=== PATIENT | female | born 1985 | race Two or more races ===

== ENCOUNTER 2022-04-06 04:18 | Day surgery (SDC) | payer OTHER ==
[2022-04-03 16:02] VITALS: BMI 31.3
[2022-04-06 06:52] VITALS: RESP 18
[2022-04-06] MEDS ORDERED: ceFAZolin SODIUM 1 GM VIAL ONE (07:18)
[2022-04-06] MEDS ORDERED: SUCCINYLCHOLINE CHLORIDE 200 MG/10 ML SYRINGE ONE (07:38)
[2022-04-06] MEDS ORDERED: PROPOFOL 40 ML ONE (07:38)
[2022-04-06] MEDS ORDERED: ePHEDrine SULFATE 50 MG/1 ML AMPULE ONE (07:48)
[2022-04-06] MEDS ORDERED: LACTATED RINGERS SOLUTION 1,000 ML IV SCH (08:45)
[2022-04-06] MEDS ORDERED: INDOMETHACIN 50 MG CAPSULE PO ONE (09:10)
[2022-04-06 16:19] VITALS: BP 116/65; PULSE 70; TEMP 97.9
== END 2022-04-06 15:40 | disposition home or self-care (01) ==
LOC: JASU-SURG 04:18
PROVIDERS: ATTEND Obstetrics & Gynecology Maternal & Fetal Medicine
PROC: 0UVC7ZZ Restriction of Cervix, Via Natural or Artificial Opening (ICD-10-PCS; principal; 2022-04-06 07:30)
DX: O34.31 Maternal care for cervical incompetence, first trimester (principal); Z3A.12 12 weeks gestation of pregnancy
CPT/HCPCS: 94760

== ENCOUNTER 2022-10-12 19:20 | Inpatient (IN) | payer OTHER ==
[2022-10-12] MEDS: DEXTROSE 5%-LACTATED RINGERS 1,000 ML IV SCH (21:05)
[2022-10-12] MEDS ORDERED: SODIUM CHLORIDE 500 ML IV STA (21:34)
[2022-10-12] MEDS ORDERED: MISOPROSTOL 100 MCG TABLET PV SCH (21:45)
[2022-10-12 21:52] LABS: BASO % 0.2 % (0-2.0); HEMATOCRIT 25.6 % (32.4-45.2); LYMPH % 28.5 % (8-40); MCH 22.5 pg (25.7-33.7); MCHC 31.4 g/dl (32.0-36.0); MEAN CELL VOLUME 71.6 fl (80-96); MEAN PLT VOLUME 7.7 fl (7.5-11.1); MONO % 6.4 % (3.8-10.2); NEUT % 63.9 % (42.8-82.8); PLATELET COUNT 402 10^3/uL (134-434); RBC 3.57 M/mm3 (3.60-5.2); RDW 16.8 % (11.6-15.6)
[2022-10-12 21:59] LABS: PROTHROMBIN TIME (PATIENT) 11.6 SEC (9.7-13.0)
[2022-10-12 22:02] LABS: ACTIVATED PTT 26.5 SECONDS (25.2-36.5)
[2022-10-12 22:03] LABS: POTASSIUM 4.2 mmol/L (3.5-5.1)
[2022-10-12 22:04] LABS: CALCIUM 8.3 mg/dL (8.5-10.1)
[2022-10-12 22:05] LABS: BLOOD UREA NITROGEN 12.4 mg/dL (7-18)
[2022-10-12 22:08] LABS: CREATININE 0.6 mg/dL (0.55-1.3)
[2022-10-12 22:50] VITALS: BMI 33.3
[2022-10-12] MEDS: MISOPROSTOL 25 MCG TABLET (COMPOUNDED BY PHARMACY) PV SCH (23:05)
[2022-10-13] MEDS: MISOPROSTOL 25 MCG TABLET (COMPOUNDED BY PHARMACY) PV SCH (08:51)
[2022-10-13] MEDS ORDERED: OXYTOCIN 30 UNITS in 0.9% NS 30 UNIT/500 ML INFUS.BAG IVPB ONE (09:33)
[2022-10-13] MEDS ORDERED: OXYTOCIN 30 UNITS in 0.9% NS 30 UNIT/500 ML INFUS.BAG IVPB SCH (09:45)
[2022-10-13] MEDS ORDERED: morphine SULFATE 4 MG/ML VIAL IVPB ONE ×2 (15:54→20:04)
[2022-10-13] MEDS ORDERED: morphine CARPU-JECT 8 MG/1 ML DISP.SYRIN IVPB ONE (15:54)
[2022-10-13] MEDS ORDERED: morphine SULFATE 4 MG/ML VIAL ONE ×2 (16:02→20:12)
[2022-10-13] MEDS ORDERED: OXYTOCIN 20 UNITS in 0.9% NS 20 UNIT/1,000 ML INFUS.BAG IV ONE (17:10)
[2022-10-13] MEDS ORDERED: LIDOCAINE HCL 1% PRESERVATIVE FREE - 30ML VIAL ONE (17:11)
[2022-10-13] MEDS: DEXTROSE 5%-LACTATED RINGERS 1,000 ML IV SCH (20:10)
[2022-10-13] MEDS ORDERED: SODIUM CHLORIDE 500 ML IV STA (20:26)
[2022-10-13 22:28] LABS: CORD BASE EXCESS -8.6 mmol/L (0-2); CORD HCO3 18.2 mmHg (20-29); CORD pH 7.255 (7.14-7.44)
[2022-10-13 22:31] LABS: CORD HCO3 17.3 mmHg (20-29); CORD PCO2 35.6 mmHg (30-78); CORD pH 7.305 (7.14-7.44)
[2022-10-13] MEDS ORDERED: WITCH HAZEL 50% (TUCKS) 40 PAD/JAR PAD TP PRN (23:00)
[2022-10-13] MEDS ORDERED: ACETAMINOPHEN 325 MG TABLET (FP) PO PRN (23:00)
[2022-10-13] MEDS ORDERED: OXYTOCIN 20 UNITS in 0.9% NS 20 UNIT/1,000 ML INFUS.BAG IV SCH (23:00)
[2022-10-13] MEDS ORDERED: BENZOCAINE 28 GM HEMORRHOIDAL OINTMENT TP PRN (23:00)
[2022-10-13] MEDS ORDERED: IBUPROFEN 600 MG TABLET (FP) PO PRN (23:00)
[2022-10-14 08:03] LABS: HEMATOCRIT 26.5 % (32.4-45.2); HEMOGLOBIN 7.9 GM/dL (10.7-15.3); MCH 22.4 pg (25.7-33.7); MEAN CELL VOLUME 74.5 fl (80-96); MEAN PLT VOLUME 8.2 fl (7.5-11.1); PLATELET COUNT 425 10^3/uL (134-434); RBC 3.55 M/mm3 (3.60-5.2); RDW 16.7 % (11.6-15.6); WHITE BLOOD COUNT 27.5 K/mm3 (4.0-10.0)
[2022-10-14] MEDS: FERROUS SO4 325 MG TABLET (FP) PO SCH ×3 (08:58→17:12)
[2022-10-14] MEDS: PRENATAL VITAMINS W/ FOLIC ACID TABLET (FP) PO SCH (09:00)
[2022-10-14 09:14] LABS: ANISOCYTOSIS 2+; MACROCYTOSIS 0
[2022-10-14] MEDS ORDERED: DIPHTH,PERTUSS(ACELL),TET 0.5 ML DISP.SYRIN IM ONE (10:00)
[2022-10-14] MEDS: DOCUSATE SODIUM 100 MG CAPSULE (FP) PO SCH ×2 (14:16→21:26)
[2022-10-14 18:04] LABS: BASO % 0.2 % (0-2.0); EOS % 0.6 % (0-4.5); HEMOGLOBIN 7.2 GM/dL (10.7-15.3); LYMPH % 19.8 % (8-40); MCH 22.2 pg (25.7-33.7); MCHC 30.2 g/dl (32.0-36.0); MEAN CELL VOLUME 73.5 fl (80-96); MEAN PLT VOLUME 8.2 fl (7.5-11.1); MONO % 4.6 % (3.8-10.2); NEUT % 74.8 % (42.8-82.8); PLATELET COUNT 390 10^3/uL (134-434); RBC 3.26 M/mm3 (3.60-5.2); RDW 16.9 % (11.6-15.6)
[2022-10-14 18:53] VITALS: RESP 18
[2022-10-14 20:43] LABS: ANISOCYTOSIS 2+; MACROCYTOSIS 0; OVALOCYTE 1+; TARGET CELLS 2+
[2022-10-15] MEDS: DOCUSATE SODIUM 100 MG CAPSULE (FP) PO SCH (06:27)
[2022-10-15] MEDS: FERROUS SO4 325 MG TABLET (FP) PO SCH ×2 (08:10→12:06)
[2022-10-15] MEDS: PRENATAL VITAMINS W/ FOLIC ACID TABLET (FP) PO SCH (10:06)
[2022-10-15 11:00] VITALS: BP 112/54; PULSE 73; TEMP 98.4
== END 2022-10-15 13:50 | disposition home or self-care (01) | DRG 560 ==
LOC: JLDR 19:20 → J3W 10-14 00:22
PROVIDERS: ADMIT Obstetrics & Gynecology Maternal & Fetal Medicine; ATTEND Obstetrics & Gynecology Maternal & Fetal Medicine
PROC: 3E0P7VZ Introduction of Hormone into Female Reproductive, Via Natural or Artificial Opening (ICD-10-PCS; 2022-10-12)
PROC: 10E0XZZ Delivery of Products of Conception, External Approach (ICD-10-PCS; principal; 2022-10-13)
PROC: 0W8NXZZ Division of Female Perineum, External Approach (ICD-10-PCS; 2022-10-13)
PROC: 10907ZC Drainage of Amniotic Fluid, Therapeutic from Products of Conception, Via Natural or Artificial Opening (ICD-10-PCS; 2022-10-13)
PROC: 0HQ9XZZ Repair Perineum Skin, External Approach (ICD-10-PCS; 2022-10-13)
PROC: 10H07YZ Insertion of Other Device into Products of Conception, Via Natural or Artificial Opening (ICD-10-PCS; 2022-10-13)
DX: O70.0 First degree perineal laceration during delivery (principal); O99.12 Other diseases of the blood and blood-forming organs and certain disorders involving the immune mechanism complicating childbirth; D68.59 Other primary thrombophilia; O34.33 Maternal care for cervical incompetence, third trimester; O90.81 Anemia of the puerperium; D64.9 Anemia, unspecified; Z3A.39 39 weeks gestation of pregnancy; Z37.0 Single live birth
CPT/HCPCS: 36415; 36600; 80048; 82803; 85025; 85610; 85730; 86780; 86850; 86900; 86901; 88307-TC; 90715

== ENCOUNTER 2023-11-02 04:21 | Day surgery (SDC) | payer OTHER ==
[2023-11-02 12:00] LABS: HEMATOCRIT 25.7 % (32.4-45.2); HEMOGLOBIN 7.9 GM/dL (10.7-15.3); MCH 20.8 pg (25.7-33.7); MCHC 30.8 g/dl (32.0-36.0); MEAN CELL VOLUME 67.5 fl (80-96); MEAN PLT VOLUME 7.3 fl (7.5-11.1); PLATELET COUNT 414 10^3/uL (134-434); RDW 17.2 % (11.6-15.6); WHITE BLOOD COUNT 7.1 K/mm3 (4.0-10.0)
[2023-11-02] MEDS ORDERED: CLINDAMYCIN PHOSPHATE 600 MG/4 ML VIAL ONE (12:32)
[2023-11-02] MEDS ORDERED: CLINDAMYCIN PHOSPHATE 300 MG/2 ML VIAL ONE (12:33)
[2023-11-02] MEDS ORDERED: ceFAZolin SODIUM 1 GM VIAL ONE (12:34)
[2023-11-02] MEDS ORDERED: SODIUM CHLORIDE 0.9% P/F 10 ML VIAL IJ ONE (12:37)
[2023-11-02 13:18] VITALS: BMI 28.1
[2023-11-02] MEDS ORDERED: EPINEPHrine/PF 1 MG/1 ML (1:1,000) AMPULE ONE (13:48)
[2023-11-02] MEDS ORDERED: LIDOCAINE HCL 1%, 10 MG/ML (20ML VIAL) ONE (14:37)
[2023-11-02] MEDS: LIDOCAINE HCL 1%, 10 MG/ML (20ML VIAL) NR ONE (14:43)
[2023-11-02] MEDS: IRON SUCROSE INJECTION 300 MG in SODIUM CHLORIDE 235 ML IVPB ONE (15:19)
[2023-11-02] MEDS ORDERED: LACTATED RINGERS SOLUTION 1,000 ML IV SCH (15:30)
[2023-11-02] MEDS: INDOMETHACIN 50 MG CAPSULE PO ONE (15:38)
[2023-11-02 18:29] VITALS: RESP 20; TEMP 97.3
[2023-11-02 18:31] VITALS: BP 101/57; PULSE 73
== END 2023-11-02 18:35 | disposition home or self-care (01) ==
LOC: JASU-SURG 04:21
PROVIDERS: ATTEND Obstetrics & Gynecology Maternal & Fetal Medicine
PROC: 0UCC7ZZ Extirpation of Matter from Cervix, Via Natural or Artificial Opening (ICD-10-PCS; principal; 2023-11-02 12:30)
DX: O34.31 Maternal care for cervical incompetence, first trimester (principal); O88.211 Thromboembolism in pregnancy, first trimester; O99.111 Other diseases of the blood and blood-forming organs and certain disorders involving the immune mechanism complicating pregnancy, first trimester; Z3A.12 12 weeks gestation of pregnancy
CPT/HCPCS: 36415; 85027; 86850; 86900; 86901; 94760; J1756

== ENCOUNTER 2024-05-08 02:40 | Inpatient (IN) | payer OTHER ==
[2024-05-08] MEDS ORDERED: DEXTROSE 5%-LACTATED RINGERS 1,000 ML IV SCH (03:05)
[2024-05-08] MEDS: DEXTROSE 5%-LACTATED RINGERS 1,000 ML IV SCH (04:00)
[2024-05-08 04:12] LABS: BASO % 0.2 % (0-2.0); HEMATOCRIT 33.1 % (32.4-45.2); LYMPH % 24.8 % (8-40); MCHC 30.3 g/dl (32.0-36.0); MEAN CELL VOLUME 79.4 fl (80-96); MEAN PLT VOLUME 7.7 fl (7.5-11.1); MONO % 5.2 % (3.8-10.2); NEUT % 68.8 % (42.8-82.8); PLATELET COUNT 322 10^3/uL (134-434); RBC 4.17 M/mm3 (3.60-5.2); RDW 28.6 % (11.6-15.6); WHITE BLOOD COUNT 12.9 K/mm3 (4.0-10.0)
[2024-05-08 04:17] VITALS: BMI 30.7
[2024-05-08 04:21] LABS: INR 1.01 (0.83-1.09); PROTHROMBIN TIME (PATIENT) 11.1 SEC (9.7-13.0)
[2024-05-08 04:23] LABS: ACTIVATED PTT 29.6 SECONDS (25.2-36.5)
[2024-05-08 04:29] LABS: POTASSIUM 3.7 mmol/L (3.5-5.1)
[2024-05-08 04:30] LABS: CALCIUM 8.9 mg/dL (8.5-10.1)
[2024-05-08 04:31] LABS: BLOOD UREA NITROGEN 16.9 mg/dL (7-18)
[2024-05-08 04:34] LABS: CREATININE 0.7 mg/dL (0.55-1.3)
[2024-05-08 04:46] LABS: ANISOCYTOSIS 2+; MACROCYTOSIS 0
[2024-05-08 05:27] LABS: HIV INTERPRETATION NEGATIVE (NEGATIVE)
[2024-05-08] MEDS ORDERED: OXYTOCIN 20 UNITS in 0.9% NS 20 UNIT/1,000 ML INFUS.BAG IV ONE (06:18)
[2024-05-08] MEDS ORDERED: LIDOCAINE HCL 1% PRESERVATIVE FREE - 30ML VIAL ONE (06:18)
[2024-05-08] MEDS: OXYTOCIN 30 UNITS in 0.9% NS 30 UNIT/500 ML INFUS.BAG IVPB SCH (07:00)
[2024-05-08] MEDS: SODIUM CHLORIDE 1,000 ML IV STA (08:14)
[2024-05-08] MEDS ORDERED: BUPIVACAINE HCL/PF 0.25% (2.5MG/ML) 10 ML VIAL ONE (08:20)
[2024-05-08] MEDS ORDERED: FENTANYL/BUPIVACAINE/NS/PF - PCEA - 50 ML DISP.SYRIN EP ONE (08:21)
[2024-05-08] MEDS: FENTANYL/BUPIVACAINE/NS/PF - PCEA - 50 ML DISP.SYRIN EP SCH (08:32)
[2024-05-08] MEDS ORDERED: NALOXONE HCL 0.4 MG/ML VIAL IVPUSH PRN (08:57)
[2024-05-08] MEDS ORDERED: LIDOCAINE HCL/PF 2% SDV 5ML VIAL ONE (09:20)
[2024-05-08] MEDS ORDERED: OXYTOCIN 10 UNITS/ML VIAL ONE (09:53)
[2024-05-08] MEDS: OXYTOCIN 10 UNITS/ML VIAL IM ONE (09:57)
[2024-05-08] MEDS ORDERED: ACETAMINOPHEN 325 MG TABLET (FP) PO PRN (10:32)
[2024-05-08] MEDS ORDERED: WITCH HAZEL 50% (TUCKS) 40 PAD/JAR PAD TP PRN (10:32)
[2024-05-08] MEDS ORDERED: IBUPROFEN 600 MG TABLET (FP) PO PRN (10:32)
[2024-05-08] MEDS ORDERED: BENZOCAINE 28 GM HEMORRHOIDAL OINTMENT TP PRN (10:32)
[2024-05-08] MEDS: OXYTOCIN 20 UNITS in 0.9% NS 20 UNIT/1,000 ML INFUS.BAG IV SCH (11:00)
[2024-05-08 11:30] LABS: CORD HCO3 18.2 mmHg (20-29); CORD PCO2 48.4 mmHg (30-78); CORD pH 7.194 (7.14-7.44)
[2024-05-08 11:31] LABS: CORD BASE EXCESS -5.7 mmol/L (0-2); CORD HCO3 19.7 mmHg (20-29); CORD PCO2 38.6 mmHg (30-78); CORD pH 7.326 (7.14-7.44)
[2024-05-08 14:31] VITALS: RESP 18
[2024-05-08] MEDS: SIMETHICONE 80 MG TAB.CHEW (FP) PO SCH (23:46)
[2024-05-09] MEDS: FAMOTIDINE 20 MG TABLET PO SCH (00:23)
[2024-05-09 07:50] LABS: BASO % 0.2 % (0-2.0); EOS % 0.7 % (0-4.5); HEMATOCRIT 26.8 % (32.4-45.2); HEMOGLOBIN 8.2 GM/dL (10.7-15.3); LYMPH % 22.8 % (8-40); MCH 24.5 pg (25.7-33.7); MCHC 30.6 g/dl (32.0-36.0); MEAN CELL VOLUME 80.1 fl (80-96); MONO % 5.4 % (3.8-10.2); NEUT % 70.9 % (42.8-82.8); PLATELET COUNT 281 10^3/uL (134-434); RBC 3.34 M/mm3 (3.60-5.2); RDW 28.6 % (11.6-15.6); WHITE BLOOD COUNT 15.7 K/mm3 (4.0-10.0)
[2024-05-09] MEDS: IRON SUCROSE INJECTION 300 MG in SODIUM CHLORIDE 235 ML IVPB ONE (19:58)
[2024-05-10 08:16] VITALS: BP 114/70; PULSE 81; TEMP 98.3
== END 2024-05-10 13:40 | disposition home or self-care (01) | DRG 560 ==
LOC: JDEL 02:40 → JLDR 03:00 → J3W 12:15
PROVIDERS: ADMIT Obstetrics & Gynecology Maternal & Fetal Medicine; ATTEND Obstetrics & Gynecology Maternal & Fetal Medicine
PROC: 10E0XZZ Delivery of Products of Conception, External Approach (ICD-10-PCS; principal; 2024-05-08)
DX: O99.12 Other diseases of the blood and blood-forming organs and certain disorders involving the immune mechanism complicating childbirth (principal); D68.59 Other primary thrombophilia; O99.02 Anemia complicating childbirth; D64.9 Anemia, unspecified; O34.33 Maternal care for cervical incompetence, third trimester; Z3A.38 38 weeks gestation of pregnancy; Z37.0 Single live birth
CPT/HCPCS: 36415; 36600; 59409; 80048; 82803; 85025; 85610; 85730; 86780; 86850; 86900; 86901; 87389; 88307-TC; J1756